=== PATIENT | male | born 1970 | race Caucasian/White ===

== ENCOUNTER 2024-07-07 16:07 | Inpatient (IN) | payer BC ==
[~2024-07-07] VITALS: Ht 172.7 cm; Wt 114.3 kg
[2024-07-07 16:10] VITALS: O2SAT 98
[2024-07-07 16:29] LABS: BASOPHILS % 0.6 % (0.0-2.0); EOSINOPHILS % 1.5 % (0.0-5.0); HEMATOCRIT. 45.4 % (42.0-52.0); HEMOGLOBIN. 14.7 g/dL (14.0-18.0); LYMPHOCYTES % 31.3 % (20.0-50.0); MEAN CORPUSCULAR HEMOGLOBIN 27.5 pg (28.0-32.0); MEAN CORPUSCULAR HGB CONC 32.4 g/dL (31.0-37.0); MEAN CORPUSCULAR VOLUME 85.1 fL (80.0-94.0); MEAN PLATELET VOLUME 8.1 fl (7.4-10.4); MONOCYTES % 9.1 % (2.0-8.0); NEUTROPHILS % 57.5 % (40.0-76.0); PLATELET 310 x1000/uL (130-400); RED BLOOD CELL COUNT 5.33 mill/uL (4.7-6.1); RED CELL DISTRIBUTION WIDTH 13.6 % (11.6-14.6); WHITE BLOOD COUNT 8.4 x1000/uL (4.5-11.0)
[2024-07-07 16:37] LABS: INR 1.1; PARTIAL THROMBOPLASTIN TIME 23.1 sec (23.4-31.0); PROTHROMBIN TIME 11.3 sec (9.6-11.0)
[2024-07-07 16:42] LABS: CHLORIDE 102 mEq/L (98-107); SODIUM 140 mEq/L (136-145)
[2024-07-07 16:43] LABS: CARBON DIOXIDE 21 mEq/L (21-32)
[2024-07-07 16:44] LABS: CALCIUM 9.2 mg/dL (8.7-10.4)
[2024-07-07 16:48] LABS: CREATININE 1.6 mg/dL (0.6-1.3); GLUCOSE 219 mg/dL (70-105); UREA NITROGEN BLOOD 20 mg/dL (9-23)
[2024-07-07 16:52] LABS: POTASSIUM 2.8 mEq/L (3.5-5.1)
[2024-07-07 16:53] LABS: TROPONIN I HIGH SENSITIVITY < 4 ng/L (3.0-53)
[2024-07-07] MEDS ORDERED: KCL 10MEQ/50ML PREMIX 100 ML IV SCH (17:00)
[2024-07-07] MEDS: MAGNESIUM 2 G PREMIX 50 ML IV ONE (17:10)
[2024-07-07] MEDS: ASPIRIN 81MG TABLET PO ONE (17:10)
[2024-07-07] MEDS: POTASSIUM CHLORIDE 20MEQ TABLET SR PO ONE (17:10)
[2024-07-07] MEDS: KCL 20MEQ/100ML PREMIX 100 ML IV SCH (17:15)
[2024-07-07 18:27] LABS: CLARITY URINE CLEAR (CLEAR); COLOR URINE YELLOW (YELLOW); GLUCOSE URINE NEGATIVE (NEGATIVE); KETONES URINE NEGATIVE (NEGATIVE); LEUKOCYTE ESTERASE URINE NEGATIVE (NEGATIVE); NITRITE URINE NEGATIVE (NEGATIVE); OCCULT BLOOD URINE NEGATIVE (NEGATIVE); PH URINE 5.5 (4.5-8.0); PROTEIN URINE 1+ (NEGATIVE); SPECIFIC GRAVITY URINE 1.015 (1.005-1.030); UROBILINOGEN URINE 0.2 E.U./dL (0.2-1.0)
[2024-07-07 18:56] LABS: BACTERIA URINE 1+; RBC URINE NONE SEEN /hpf (0-2); SQUAMOUS EPITHELIAL CELL URINE FEW /lpf (RARE/1+); WBC URINE 0-2 /hpf (0-2)
[2024-07-07 19:17] LABS: TROPONIN I HIGH SENSITIVITY 18 ng/L (3.0-53)
[2024-07-07] MEDS ORDERED: APIX5TAB PO (21:37)
[2024-07-07] MEDS ORDERED: METOPROLOL PO (21:45)
[2024-07-07] MEDS ORDERED: TIRZ5PEN3 (21:45)
[2024-07-07] MEDS ORDERED: LOSARTAN PO (21:45)
[2024-07-07] MEDS ORDERED: CHLO25TA2 PO (21:45)
[2024-07-07] MEDS ORDERED: AMLODIPINE PO (21:45)
[2024-07-07 22:43] LABS: TROPONIN I HIGH SENSITIVITY 107 ng/L (3.0-53)
[2024-07-08] VITALS (12 sets, daily range): BP systolic 96–137; BP diastolic 65–97; PULSE 78–108; RESP 9–31; TEMP 36.9–37.1; O2SAT 93–96
[2024-07-08] MEDS ORDERED: MAGNESIUM/ALUMINUM HYDROXIDE/SIMETHICONE 30ML UDC PO PRN
[2024-07-08] MEDS ORDERED: ONDANSETRON HCL 4MG/2ML INJ IV PRN
[2024-07-08] MEDS ORDERED: ENOXAPARIN 40MG/0.4ML SYR SUBCUT SCH
[2024-07-08] MEDS ORDERED: GUAIFENESIN 200MG/10ML SUGAR FREE UDC PO PRN
[2024-07-08] MEDS ORDERED: HYDROCODONE/ACETAMINOPHEN 5/325MG TABLET PO PRN
[2024-07-08] MEDS ORDERED: DOCUSATE SODIUM 100MG CAPSULE PO PRN
[2024-07-08] MEDS ORDERED: ACETAMINOPHEN 325MG TABLET PO PRN ×2
[2024-07-08] MEDS ORDERED: IPRATROPIUM/ALBUTEROL 0.5-3(2.5)MG/3ML NEB HHN PRN
[2024-07-08] MEDS ORDERED: CLONIDINE 0.1MG TABLET PO PRN
[2024-07-08] MEDS ORDERED: NALOXONE HCL 0.4MG/ML VIAL IV PRN ×2 (00:15)
[2024-07-08 02:06] LABS: *AMPHETAMINES SCREEN URINE NEGATIVE (NEGATIVE)
[2024-07-08 02:07] LABS: *BARBITURATES SCREEN URINE NEGATIVE (NEGATIVE); *BENZODIAZEPINES SCREEN URINE NEGATIVE (NEGATIVE); *COCAINE SCREEN URINE NEGATIVE (NEGATIVE); CANNABINOID URINE SCREEN NEGATIVE (NEGATIVE); METHADONE URINE SCREEN NEGATIVE (NEGATIVE); OPIATES URINE SCREEN NEGATIVE (NEGATIVE); PHENCYCLIDINE URINE SCREEN NEGATIVE (NEGATIVE)
[2024-07-08 02:08] LABS: ECSTASY MDMA SCREEN URINE NEGATIVE (NEGATIVE)
[2024-07-08] MEDS: LOSARTAN 100 MG TABLET PO SCH (10:01)
[2024-07-08] MEDS: METOPROLOL SUCCINATE 50MG ER TABLET PO SCH (10:01)
[2024-07-08] MEDS: ASPIRIN 81MG EC TABLET PO SCH (10:02)
[2024-07-08] MEDS: AMLODIPINE 10MG TABLET PO SCH (10:02)
[2024-07-08] MEDS: APIXABAN 5 MG TABLET PO SCH (10:04)
[2024-07-08 11:31] LABS: BASOPHILS % 0.7 % (0.0-2.0); EOSINOPHILS % 2.6 % (0.0-5.0); HEMATOCRIT. 43.7 % (42.0-52.0); HEMOGLOBIN. 14.2 g/dL (14.0-18.0); LYMPHOCYTES % 31.1 % (20.0-50.0); MEAN CORPUSCULAR HEMOGLOBIN 28.1 pg (28.0-32.0); MEAN CORPUSCULAR HGB CONC 32.5 g/dL (31.0-37.0); MEAN CORPUSCULAR VOLUME 86.5 fL (80.0-94.0); MEAN PLATELET VOLUME 8.3 fl (7.4-10.4); MONOCYTES % 11.4 % (2.0-8.0); NEUTROPHILS % 54.2 % (40.0-76.0); PLATELET 270 x1000/uL (130-400); RED BLOOD CELL COUNT 5.05 mill/uL (4.7-6.1); RED CELL DISTRIBUTION WIDTH 13.7 % (11.6-14.6); WHITE BLOOD COUNT 7.1 x1000/uL (4.5-11.0)
[2024-07-09] VITALS (12 sets, daily range): BP systolic 97–132; BP diastolic 59–103; PULSE 79–133; RESP 13–34; TEMP 36.4–36.7; O2SAT 93–98
[2024-07-09 00:26] LABS: BASOPHILS % 0.5 % (0.0-2.0); EOSINOPHILS % 2.5 % (0.0-5.0); HEMATOCRIT. 43.8 % (42.0-52.0); HEMOGLOBIN. 14.7 g/dL (14.0-18.0); LYMPHOCYTES % 34.1 % (20.0-50.0); MEAN CORPUSCULAR HEMOGLOBIN 28.8 pg (28.0-32.0); MEAN CORPUSCULAR HGB CONC 33.6 g/dL (31.0-37.0); MEAN CORPUSCULAR VOLUME 85.6 fL (80.0-94.0); MEAN PLATELET VOLUME 8.1 fl (7.4-10.4); MONOCYTES % 10.1 % (2.0-8.0); NEUTROPHILS % 52.8 % (40.0-76.0); PLATELET 286 x1000/uL (130-400); RED BLOOD CELL COUNT 5.12 mill/uL (4.7-6.1); RED CELL DISTRIBUTION WIDTH 13.6 % (11.6-14.6); WHITE BLOOD COUNT 6.6 x1000/uL (4.5-11.0)
[2024-07-09 00:30] LABS: CHLORIDE 103 mEq/L (98-107); POTASSIUM 3.6 mEq/L (3.5-5.1); SODIUM 140 mEq/L (136-145)
[2024-07-09 00:31] LABS: CALCIUM 9.3 mg/dL (8.7-10.4); CARBON DIOXIDE 30 mEq/L (21-32)
[2024-07-09 00:36] LABS: CREATINE KINASE MB FRACTION 1.3 ng/mL (0.5-3.6); CREATININE 1.2 mg/dL (0.6-1.3); GLUCOSE 100 mg/dL (70-105); TRIGLYCERIDE 95 mg/dL (0-150); UREA NITROGEN BLOOD 14 mg/dL (9-23)
[2024-07-09 00:37] LABS: LDL CHOLESTEROL 98 mg/dL (5-100); TROPONIN I HIGH SENSITIVITY 20 ng/L (3.0-53)
[2024-07-09 00:38] LABS: CHOLESTEROL 157 mg/dL (<200); CREATINE KINASE 153 IU/L (46-171); HDL CHOLESTEROL 42 mg/dL (>55)
[2024-07-09 11:46] LABS: BASOPHILS % 0.4 % (0.0-2.0); EOSINOPHILS % 2.3 % (0.0-5.0); HEMATOCRIT. 45.5 % (42.0-52.0); HEMOGLOBIN. 14.7 g/dL (14.0-18.0); LYMPHOCYTES % 21.8 % (20.0-50.0); MEAN CORPUSCULAR HEMOGLOBIN 28.1 pg (28.0-32.0); MEAN CORPUSCULAR HGB CONC 32.3 g/dL (31.0-37.0); MONOCYTES % 10.6 % (2.0-8.0); NEUTROPHILS % 64.9 % (40.0-76.0); PLATELET 289 x1000/uL (130-400); RED BLOOD CELL COUNT 5.23 mill/uL (4.7-6.1); WHITE BLOOD COUNT 7.2 x1000/uL (4.5-11.0)
[2024-07-09 11:48] LABS: CHLORIDE 101 mEq/L (98-107); POTASSIUM 3.5 mEq/L (3.5-5.1); SODIUM 142 mEq/L (136-145)
[2024-07-09 11:52] LABS: CALCIUM 9.5 mg/dL (8.7-10.4); CARBON DIOXIDE 29 mEq/L (21-32)
[2024-07-09 11:57] LABS: ALANINE AMINOTRANSFERASE 18 IU/L (10-49); CREATININE 1.1 mg/dL (0.6-1.3); GLUCOSE 101 mg/dL (70-105); UREA NITROGEN BLOOD 12 mg/dL (9-23)
[2024-07-09 11:58] LABS: ALBUMIN 4.1 g/dL (3.2-4.8)
[2024-07-09 11:59] LABS: ASPARTATE AMINOTRANSFERASE 19 IU/L (<34); BILIRUBIN TOTAL 0.7 mg/dL (0.1-1.0); PROTEIN TOTAL 6.7 g/dL (6.0-8.3)
[2024-07-10] VITALS (12 sets, daily range): BP systolic 101–137; BP diastolic 65–99; PULSE 77–107; RESP 13–26; TEMP 36.6–37.1; O2SAT 94–98
[2024-07-10 06:27] LABS: BASOPHILS % 0.9 % (0.0-2.0); EOSINOPHILS % 2.9 % (0.0-5.0); HEMATOCRIT. 45.3 % (42.0-52.0); HEMOGLOBIN. 14.9 g/dL (14.0-18.0); LYMPHOCYTES % 37.3 % (20.0-50.0); MEAN CORPUSCULAR HEMOGLOBIN 28.2 pg (28.0-32.0); MEAN CORPUSCULAR HGB CONC 32.9 g/dL (31.0-37.0); MEAN CORPUSCULAR VOLUME 85.7 fL (80.0-94.0); MEAN PLATELET VOLUME 7.8 fl (7.4-10.4); MONOCYTES % 11.2 % (2.0-8.0); NEUTROPHILS % 47.7 % (40.0-76.0); PLATELET 281 x1000/uL (130-400); RED BLOOD CELL COUNT 5.29 mill/uL (4.7-6.1); RED CELL DISTRIBUTION WIDTH 13.6 % (11.6-14.6); WHITE BLOOD COUNT 7.2 x1000/uL (4.5-11.0)
[2024-07-10 06:52] LABS: CHLORIDE 101 mEq/L (98-107); POTASSIUM 3.3 mEq/L (3.5-5.1); SODIUM 140 mEq/L (136-145)
[2024-07-10 06:53] LABS: CARBON DIOXIDE 28 mEq/L (21-32)
[2024-07-10 06:54] LABS: CALCIUM 9.4 mg/dL (8.7-10.4)
[2024-07-10 06:58] LABS: CREATININE 1.1 mg/dL (0.6-1.3); GLUCOSE 87 mg/dL (70-105); UREA NITROGEN BLOOD 12 mg/dL (9-23)
[2024-07-10 09:58] LABS: PHOSPHORUS 3.2 mg/dL (2.5-4.9)
[2024-07-10] MEDS: KCL 20MEQ/100ML PREMIX 100 ML IV SCH (10:56)
[2024-07-10] MEDS: ENOXAPARIN 120MG/0.8ML SYR SUBCUT SCH (14:18)
[2024-07-11] VITALS (10 sets, daily range): BP systolic 119–155; BP diastolic 82–101; PULSE 71–105; RESP 12–29; TEMP 36.2–36.8; O2SAT 94–99
[2024-07-11] MEDS ORDERED: VERAPAMIL HCL 2.5 MG/1 ML 2ML VIAL IV ONE (08:34)
[2024-07-11] MEDS ORDERED: IODIXANOL 320MG/ML 100 ML BOTTLE IV ONE (08:34)
[2024-07-11] MEDS ORDERED: LIDOCAINE HCL 1% 20ML VIAL ONE (08:34)
[2024-07-11] MEDS ORDERED: HEPARIN 1000 UNITS/ML 10ML ONE (08:34)
[2024-07-11] MEDS ORDERED: MIDAZOLAM HCL 2 MG/2 ML VIAL ONE (09:12)
[2024-07-11] MEDS ORDERED: DIPHENHYDRAMINE 50MG/ML VIAL ONE (09:12)
[2024-07-11] MEDS ORDERED: FENTANYL CITRATE/PF 50MCG/ML 2ML VIAL ONE (09:13)
[2024-07-11] MEDS ORDERED: ATROPINE SULFATE 1MG/10ML SYR IV PRN (11:00)
[2024-07-11] MEDS ORDERED: ACETAMINOPHEN 325MG TABLET PO PRN (11:00)
[2024-07-11] MEDS ORDERED: GENTAMICIN 80MG in SODIUM CHLORIDE IRRIG SOLN 500ML IR NR (12:00)
[2024-07-11 16:57] LABS: BASOPHILS % 0.8 % (0.0-2.0); HEMATOCRIT. 45.2 % (42.0-52.0); HEMOGLOBIN. 15.1 g/dL (14.0-18.0); LYMPHOCYTES % 26.4 % (20.0-50.0); MEAN CORPUSCULAR HEMOGLOBIN 28.6 pg (28.0-32.0); MEAN CORPUSCULAR HGB CONC 33.4 g/dL (31.0-37.0); MEAN CORPUSCULAR VOLUME 85.6 fL (80.0-94.0); MEAN PLATELET VOLUME 8.2 fl (7.4-10.4); MONOCYTES % 10.5 % (2.0-8.0); NEUTROPHILS % 60.3 % (40.0-76.0); PLATELET 292 x1000/uL (130-400); RED BLOOD CELL COUNT 5.28 mill/uL (4.7-6.1); RED CELL DISTRIBUTION WIDTH 13.5 % (11.6-14.6); WHITE BLOOD COUNT 7.6 x1000/uL (4.5-11.0)
[2024-07-11 17:04] LABS: CHLORIDE 104 mEq/L (98-107); POTASSIUM 3.7 mEq/L (3.5-5.1); SODIUM 139 mEq/L (136-145)
[2024-07-11 17:05] LABS: CARBON DIOXIDE 28 mEq/L (21-32)
[2024-07-11 17:06] LABS: CALCIUM 9.3 mg/dL (8.7-10.4)
[2024-07-11 17:10] LABS: CREATININE 1.1 mg/dL (0.6-1.3); GLUCOSE 116 mg/dL (70-105); UREA NITROGEN BLOOD 14 mg/dL (9-23)
[2024-07-11 17:13] LABS: PHOSPHORUS 2.5 mg/dL (2.5-4.9)
[2024-07-12] VITALS (12 sets, daily range): BP systolic 103–136; BP diastolic 70–101; PULSE 81–123; RESP 13–26; TEMP 36.2–37; O2SAT 95–100
[2024-07-12 11:22] LABS: BASOPHILS % 0.5 % (0.0-2.0); EOSINOPHILS % 2.2 % (0.0-5.0); HEMATOCRIT. 46.4 % (42.0-52.0); HEMOGLOBIN. 15.3 g/dL (14.0-18.0); LYMPHOCYTES % 27.5 % (20.0-50.0); MEAN CORPUSCULAR HEMOGLOBIN 27.9 pg (28.0-32.0); MEAN CORPUSCULAR HGB CONC 32.9 g/dL (31.0-37.0); MEAN CORPUSCULAR VOLUME 84.6 fL (80.0-94.0); MEAN PLATELET VOLUME 8.2 fl (7.4-10.4); MONOCYTES % 9.8 % (2.0-8.0); PLATELET 304 x1000/uL (130-400); RED BLOOD CELL COUNT 5.49 mill/uL (4.7-6.1); RED CELL DISTRIBUTION WIDTH 13.9 % (11.6-14.6); WHITE BLOOD COUNT 8.3 x1000/uL (4.5-11.0)
[2024-07-12 11:59] LABS: POTASSIUM 3.9 mEq/L (3.5-5.1)
[2024-07-12 12:01] LABS: CALCIUM 9.8 mg/dL (8.7-10.4)
[2024-07-12 12:05] LABS: CREATININE 1.3 mg/dL (0.6-1.3)
[2024-07-13] VITALS (10 sets, daily range): BP systolic 111–138; BP diastolic 79–103; PULSE 77–96; RESP 11–24; TEMP 35.9–37.5; O2SAT 91–99
[2024-07-13] MEDS ORDERED: IODIXANOL 320MG/ML 100 ML BOTTLE IV ONE (06:43)
[2024-07-13] MEDS ORDERED: GENTAMICIN/NS IRRIGATION 500 ML IR SCH (07:00)
[2024-07-13 07:06] LABS: BASOPHILS % 0.8 % (0.0-2.0); EOSINOPHILS % 2.4 % (0.0-5.0); HEMATOCRIT. 44.9 % (42.0-52.0); HEMOGLOBIN. 15.1 g/dL (14.0-18.0); MEAN CORPUSCULAR HEMOGLOBIN 28.6 pg (28.0-32.0); MEAN CORPUSCULAR HGB CONC 33.7 g/dL (31.0-37.0); MEAN CORPUSCULAR VOLUME 84.8 fL (80.0-94.0); NEUTROPHILS % 59.8 % (40.0-76.0); PLATELET 283 x1000/uL (130-400); RED CELL DISTRIBUTION WIDTH 13.8 % (11.6-14.6); WHITE BLOOD COUNT 7.8 x1000/uL (4.5-11.0)
[2024-07-13 07:32] LABS: CALCIUM 9.7 mg/dL (8.7-10.4); POTASSIUM 3.7 mEq/L (3.5-5.1)
[2024-07-13 07:37] LABS: CREATININE 1.3 mg/dL (0.6-1.3)
[2024-07-13] MEDS ORDERED: CEFAZOLIN SODIUM 1000MG/VIAL ONE (07:41)
[2024-07-13] MEDS ORDERED: LIDOCAINE HCL 1% 20ML VIAL ONE (07:45)
[2024-07-13] MEDS ORDERED: FENTANYL CITRATE/PF 50MCG/ML 2ML VIAL ONE ×2 (07:47→08:46)
[2024-07-13] MEDS ORDERED: DIPHENHYDRAMINE 50MG/ML VIAL ONE (07:47)
[2024-07-13] MEDS ORDERED: MIDAZOLAM HCL 2 MG/2 ML VIAL ONE ×3 (07:47→08:41)
[2024-07-13] MEDS ORDERED: GENTAMICIN SULF 40MG/ML 2ML VIAL ONE (07:51)
[2024-07-13] MEDS: METOPROLOL SUCCINATE 50MG ER TABLET PO SCH (09:00)
[2024-07-13] MEDS ORDERED: NALOXONE HCL 0.4MG/ML VIAL IV PRN (09:45)
[2024-07-13] MEDS: HYDROCODONE/ACETAMINOPHEN 5/325MG TABLET PO PRN (10:10)
[2024-07-13] MEDS: APIXABAN 5 MG TABLET PO SCH (20:08)
[2024-07-14] VITALS (9 sets, daily range): BP systolic 120–158; BP diastolic 85–104; PULSE 69–115; RESP 14–26; TEMP 36.8–37.3; O2SAT 93–98
[2024-07-14] MEDS ORDERED: TETRACAINE/BENZOCAINE/BUTAMBEN 20 GM SPRAY MM ONE (09:17)
[2024-07-14] MEDS ORDERED: LIDOCAINE 2% 6ML GLYDO MM ONE (09:18)
[2024-07-14] MEDS ORDERED: LIDOCAINE HCL 1% 10 MG/ML 10ML VIAL ONE (09:50)
[2024-07-14] MEDS ORDERED: PROPOFOL 200MG/20ML VIAL IV ONE (09:50)
[2024-07-14 13:40] LABS: BASOPHILS % 0.4 % (0.0-2.0); EOSINOPHILS % 1.2 % (0.0-5.0); HEMOGLOBIN. 14.3 g/dL (14.0-18.0); LYMPHOCYTES % 16.5 % (20.0-50.0); MEAN CORPUSCULAR HEMOGLOBIN 27.7 pg (28.0-32.0); MEAN CORPUSCULAR HGB CONC 32.6 g/dL (31.0-37.0); MEAN CORPUSCULAR VOLUME 84.9 fL (80.0-94.0); MONOCYTES % 11.5 % (2.0-8.0); NEUTROPHILS % 70.4 % (40.0-76.0); PLATELET 260 x1000/uL (130-400); RED BLOOD CELL COUNT 5.18 mill/uL (4.7-6.1); RED CELL DISTRIBUTION WIDTH 13.6 % (11.6-14.6); WHITE BLOOD COUNT 9.1 x1000/uL (4.5-11.0)
[2024-07-14 13:48] LABS: CHLORIDE 102 mEq/L (98-107); POTASSIUM 3.9 mEq/L (3.5-5.1); SODIUM 139 mEq/L (136-145)
[2024-07-14 13:49] LABS: CARBON DIOXIDE 29 mEq/L (21-32)
[2024-07-14 13:50] LABS: CALCIUM 9.3 mg/dL (8.7-10.4)
[2024-07-14 13:55] LABS: CREATININE 1.1 mg/dL (0.6-1.3); GLUCOSE 96 mg/dL (70-105); UREA NITROGEN BLOOD 14 mg/dL (9-23)
[2024-07-14] MEDS: SOTALOL HCL 120MG TABLET PO SCH (18:13)
[2024-07-14] MEDS ORDERED: ASPI-1497 MT (19:55)
[2024-07-14] MEDS ORDERED: METO-411 MT (19:55)
[2024-07-14] MEDS ORDERED: APIX5TAB MT (19:55)
[2024-07-14] MEDS ORDERED: SOTA120T MT (19:55)
[2024-07-14] MEDS ORDERED: AMOX1TAB16 MT (20:34)
== END 2024-07-14 20:44 | disposition home or self-care (01) | DRG 275 ==
LOC: ER 16:07 → EDBEDREQTM 18:18 → EDBEDREQ 18:18 → 5EST 23:05
PROVIDERS: ADMIT Internal Medicine; ATTEND Internal Medicine
PROC: 4A023N7 Measurement of Cardiac Sampling and Pressure, Left Heart, Percutaneous Approach (ICD-10-PCS; 2024-07-11)
PROC: B211YZZ Fluoroscopy of Multiple Coronary Arteries using Other Contrast (ICD-10-PCS; 2024-07-11)
PROC: 0JH608Z Insertion of Defibrillator Generator into Chest Subcutaneous Tissue and Fascia, Open Approach (ICD-10-PCS; principal; 2024-07-13)
PROC: 02H63KZ Insertion of Defibrillator Lead into Right Atrium, Percutaneous Approach (ICD-10-PCS; 2024-07-13)
PROC: 02HK3KZ Insertion of Defibrillator Lead into Right Ventricle, Percutaneous Approach (ICD-10-PCS; 2024-07-13)
PROC: B517YZZ Fluoroscopy of Left Subclavian Vein using Other Contrast (ICD-10-PCS; 2024-07-13)
DX: I47.29 Other ventricular tachycardia (principal); I21.4 Non-ST elevation (NSTEMI) myocardial infarction; I42.2 Other hypertrophic cardiomyopathy; N17.9 Acute kidney failure, unspecified; E87.6 Hypokalemia; E78.5 Hyperlipidemia, unspecified; Z68.38 Body mass index [BMI] 38.0-38.9, adult; E66.9 Obesity, unspecified; I12.9 Hypertensive chronic kidney disease with stage 1 through stage 4 chronic kidney disease, or unspecified chronic kidney disease; N18.1 Chronic kidney disease, stage 1; R80.9 Proteinuria, unspecified; R55 Syncope and collapse; I48.0 Paroxysmal atrial fibrillation; Z79.01 Long term (current) use of anticoagulants; Z82.41 Family history of sudden cardiac death; Z63.4 Disappearance and death of family member
CPT/HCPCS: 36415; 71045; 80048; 80053; 80061; 80305; 81003; 82550; 82553; 83735; 83880; 84100; 84443; 84484; 85025; 92960; 93005; 93306; 93458; 93970; 99291; A4565; A4606; C1769; C1887; C1893; J0690; J1200; J1580; J1644; J1650; J2003; J2250; J2704; J3010; J3475; J3480; J3490; Q9967